=== PATIENT | female | born 1990 | race American Indian/Alaskan Native ===

== ENCOUNTER 2018-09-29 15:41 | Emergency (ER) | payer OTHER ==
--- NOTE | 2018-09-29 21:25 | OBHP ---
Datetime: 09/29/2018 16:15 IP Adm Impression: , intrauterine IP Chief Complaint Other: Low abd pain IP Admit Plan: Observation/Evaluation Admit Comment, IP Provider: HPI: Anslye is a 27 year old G1 who presents to [facility] with complaints of low abdominal pain. Patient reports that she was seen yesterday in clinic and was told her 1 hr GTT w as elevated. Per the patient and her sister they were told to come to the hospital for some further l ab testing. Once they were in the lobby the patient also reported some lower abdominal pain that bega n yesterday. It was been on and off, now worse than 2/10, mostly with ambulation. No LOF, vaginal ble eding. Good movement. She is also complaining of dental pain for the last few months on the lef t side and believes she has a chipped tooth in that area. GERLAD: 12/08/18 Problems Suspected gestational diabetes PMH Denies PSH Denies Medications PNV Completing a course of azithromycin Allergies NKDA Social Patient denies any drug, alcohol or tobacco use during this . She was just recently diagn osed with chlamydia Family History Not significant PHYSICAL EXAM Vitals reviewed labs: 1 hr GTT 221, + chlamydia ASSESSMENT/PLAN: 27 year old G1 at 30.0 weeks here with mild lower abdominal pain, likely benign a nd related. She had a few small contractions on toco initialy that she didn't feel and her pain improved as soon as she was supine. As for her elevated GTT she has a prescription for testing s upplies and has an appt tomorrow at the clinic to discuss it further, as well as a consultation with Dr. Shah next week. There is no need for any additional lab testing at this time. Patient had a r eactive NST here in clinic. She was also urged to ask for a dental referral from her provide r to be seen for her dental pain. Patient was discharged in stable condition. Plan discussed with attending, Dr. Mullen. Alyssa Dunn MD OB Fellow Patient seen with the resident I agree with the note Abdomen - PN: Normal Lungs - PN: Normal Heart - PN: Normal HEENT - PN: Normal General - PN: Normal IP Fetus A Comments: Reactive NST Comments, ACOG Physical Exam: HEENT: signs of gingival disease, no obvious abscess or caries Gestation - Est Wks by US: 30.0 Vital Signs Provider: Reviewed
[2018-09-29 21:38] VITALS: BP 131/77; PULSE 111; TEMP 97.6; O2SAT 100
== END 2018-09-29 17:04 | disposition home or self-care (01) ==
LOC: H.EROB2 15:41
DX: O26.93 Pregnancy related conditions, unspecified, third trimester (principal); R10.2 Pelvic and perineal pain; Z3A.30 30 weeks gestation of pregnancy; K06.9 Disorder of gingiva and edentulous alveolar ridge, unspecified